=== PATIENT | female | born 1955 | race Caucasian/White ===

== ENCOUNTER 2019-12-02 15:17 | Observation (INO) ==
[2019-12-02 16:55] LABS: Basophils # 0.1 K/mcL (0.0-0.2); Basophils % 0.8 %; Eosinophils # 0.1 K/mcL (0.0-0.6); Eosinophils % 1.2 %; Hematocrit 36.8 % (35.3-44.9); Hemoglobin 12.4 g/dL (11.5-15.4); Immature Granulocytes % 0.1 % (0-4); Lymphocytes # 2.7 K/mcL (0.6-4.6); Lymphocytes % 34.5 %; Mean Corpuscular HGB Conc 33.7 g/dL (31.6-35.5); Mean Corpuscular Hemoglobin 31.9 pg (28.0-33.3); Mean Corpuscular Volume 94.6 fL (83.0-100.0); Mean Platelet Volume 10.7 fL (9.4-12.4); Monocytes # 0.6 K/mcL (0.0-1.3); Monocytes % 7.5 %; Neutrophils # 4.4 K/mcL (1.6-8.9); Platelet Count 255 K/mcL (140-400); Red Blood Count 3.89 M/mcL (3.82-4.97); Red Cell Distribution Width 12.9 % (11.5-14.5); Segmented Neutrophils % 55.9 %; White Blood Count 7.8 K/mcL (4.3-11.1)
[2019-12-02 17:29] LABS: BUN/Creatinine Ratio 16 (6-26); Blood Urea Nitrogen 13 mg/dL (8-23); Carbon Dioxide 25 mEq/L (23-29); Chloride 100 mEq/L (98-107); Glucose 106 mg/dL (70-105); Osmolality,Calculated 287 (280-300); Potassium 2.8 mEq/L (3.5-5.1); Sodium 138 mEq/L (136-145); Troponin I < 0.03 ng/mL (< 0.04); eGFR For African Americans > 60 (> 60); eGFR For Non-African Americans > 60 (> 60)
[2019-12-02] MEDS ORDERED: Aspirin 325 MG TABLET PO ONE (20:10)
[2019-12-02] MEDS ORDERED: hydrALAZINE 10 MG TABLET PO ONE (20:17)
[2019-12-02] MEDS ORDERED: Ondansetron 4 MG/2 ML VIAL IVP PRN (21:01)
[2019-12-02] MEDS ORDERED: Naloxone 0.4 MG/ML INJ IVP PRN (21:01)
[2019-12-02] MEDS ORDERED: *HR* LORazepam 2 MG/ML VIAL IVP PRN ×3 (22:28)
[2019-12-02] MEDS ORDERED: *HR* LORazepam 2 MG/ML VIAL IVP ONE (22:29)
[2019-12-02 22:50] LABS: Troponin I < 0.03 ng/mL (< 0.04)
[2019-12-02] MEDS ORDERED: traZODone 50 MG TABLET PO PRN (22:51)
[2019-12-02] MEDS: Acetaminophen 325 MG TABLET PO PRN (22:55)
[2019-12-03 00:09] LABS: Thyroid Stimulating Hormone 1.971 mcIU/mL (0.340-5.600)
[2019-12-03 02:45] LABS: Basophils # 0.1 K/mcL (0.0-0.2); Basophils % 0.7 %; Eosinophils # 0.2 K/mcL (0.0-0.6); Eosinophils % 1.9 %; Hematocrit 32.4 % (35.3-44.9); Immature Granulocytes % 0.2 % (0-4); Lymphocytes # 3.8 K/mcL (0.6-4.6); Lymphocytes % 45.9 %; Mean Corpuscular Hemoglobin 32.1 pg (28.0-33.3); Mean Corpuscular Volume 94.5 fL (83.0-100.0); Mean Platelet Volume 10.9 fL (9.4-12.4); Monocytes # 0.7 K/mcL (0.0-1.3); Monocytes % 8.9 %; Neutrophils # 3.5 K/mcL (1.6-8.9); Platelet Count 230 K/mcL (140-400); Red Blood Count 3.43 M/mcL (3.82-4.97); Red Cell Distribution Width 12.9 % (11.5-14.5); Segmented Neutrophils % 42.4 %; White Blood Count 8.3 K/mcL (4.3-11.1)
[2019-12-03 03:19] LABS: Alanine Aminotransferase 14 Units/L (7-52); Albumin 4.2 g/dL (3.5-5.7); Albumin/Globulin Ratio 1.8 (1.1-2.2); Alkaline Phosphatase 36 Units/L (34-104); Aspartate Amino Transferase 16 Units/L (13-39); BUN/Creatinine Ratio 18 (6-26); Bilirubin,Total 0.5 mg/dL (0.3-1.0); Blood Urea Nitrogen 12 mg/dL (8-23); Calcium 9.5 mg/dL (8.6-10.3); Carbon Dioxide 24 mEq/L (23-29); Chloride 104 mEq/L (98-107); Globulin 2.3 g/dL (2.4-3.5); Glucose 100 mg/dL (70-105); Osmolality,Calculated 288 (280-300); Potassium 3.1 mEq/L (3.5-5.1); Sodium 139 mEq/L (136-145); Total Protein 6.5 g/dL (6.4-8.9); Troponin I < 0.03 ng/mL (< 0.04); eGFR For African Americans > 60 (> 60); eGFR For Non-African Americans > 60 (> 60)
[2019-12-03 03:20] LABS: Thyroid Stimulating Hormone 1.335 mcIU/mL (0.340-5.600)
[2019-12-03] MEDS: cloNIDine HCL 0.1 MG TABLET PO PRN (04:07)
[2019-12-03] MEDS ORDERED: Perflutren Lipid Microsphere 1.3 ML in 0.9 % Sodium Chloride 8.7 ML IVP PRN (06:02)
[2019-12-03] MEDS: cloNIDine HCL 0.1 MG TABLET PO SCH ×3 (09:00→21:23)
[2019-12-03] MEDS: amLODIPine 5 MG TABLET PO SCH (14:07)
[2019-12-03] MEDS: Acetaminophen 325 MG TABLET PO PRN (14:13)
[2019-12-03] MEDS: lisinopriL 10 MG TABLET PO SCH (14:16)
[2019-12-03] MEDS ORDERED: cloNIDine HCL 0.1 MG TABLET PO SCH (21:00)
[2019-12-04] MEDS: cloNIDine HCL 0.1 MG TABLET PO PRN (00:02)
[2019-12-04 01:49] LABS: BUN/Creatinine Ratio 15 (6-26); Blood Urea Nitrogen 11 mg/dL (8-23); Calcium 9.6 mg/dL (8.6-10.3); Carbon Dioxide 26 mEq/L (23-29); Chloride 104 mEq/L (98-107); Glucose 110 mg/dL (70-105); Osmolality,Calculated 286 (280-300); Potassium 3.2 mEq/L (3.5-5.1); Sodium 138 mEq/L (136-145); eGFR For African Americans > 60 (> 60); eGFR For Non-African Americans > 60 (> 60)
[2019-12-04 06:43] VITALS: BP 160/71
[2019-12-04] MEDS: lisinopriL 10 MG TABLET PO SCH (08:12)
[2019-12-04] MEDS: cloNIDine HCL 0.1 MG TABLET PO SCH (08:12)
[2019-12-04] MEDS: amLODIPine 5 MG TABLET PO SCH (08:13)
[2019-12-05 16:47] LABS: Metanephrine, Plasma 0.11 nmol/L (0.00-0.49)
== END 2019-12-04 11:13 | disposition home or self-care (01) ==
LOC: 3BNU 15:17 → EMEROOARM 15:17 → 3BNU 21:50
PROVIDERS: ADMIT Internal Medicine; ATTEND Internal Medicine